=== PATIENT | female | born 1960 | race Caucasian/White ===

== ENCOUNTER 2024-11-26 13:40 | Outpatient (CLI) | payer BC, SELFPAY | END 2024-11-26 13:41 | disposition home or self-care (01) | LOC: NFLDREF 12-01 12:54 | DX: R21 Rash and other nonspecific skin eruption (principal); S70.361A Insect bite (nonvenomous), right thigh, initial encounter; Z11.8 Encounter for screening for other infectious and parasitic diseases | CPT/HCPCS: 86618 ==